=== PATIENT | male | born 1950 | race Caucasian/White ===

== ENCOUNTER 2022-06-21 11:30 | Inpatient (IN) ==
[2022-06-21] MEDS ORDERED: cefTRIAXone 1,000 MG in Water for inj. (sterile) 10 ML IVP ONE (12:45)
[2022-06-21] MEDS ORDERED: Azithromycin 500 MG in 0.9 % Sodium Chloride 250 ML IVPB ONE (12:46)
[2022-06-21 12:55] LABS: Basophils % 0.1 %; Hematocrit 39.3 % (37.5-50.1); Hemoglobin 13.7 g/dL (12.9-16.9); Immature Granulocytes % 0.4 % (0-4); Lymphocytes # 0.6 K/mcL (0.6-4.6); Lymphocytes % 9.2 %; Mean Corpuscular HGB Conc 34.9 g/dL (31.6-35.5); Mean Corpuscular Hemoglobin 30.5 pg (28.0-33.3); Mean Corpuscular Volume 87.5 fL (83.0-100.0); Mean Platelet Volume 9.3 fL (9.4-12.4); Monocytes # 0.5 K/mcL (0.0-1.3); Monocytes % 7.9 %; Neutrophils # 5.7 K/mcL (1.6-8.9); Platelet Count 239 K/mcL (140-400); Red Blood Count 4.49 M/mcL (4.19-5.50); Red Cell Distribution Width 11.9 % (11.5-14.5); Segmented Neutrophils % 82.4 %; White Blood Count 6.9 K/mcL (4.3-11.1)
[2022-06-21 13:19] LABS: BUN/Creatinine Ratio 18 (6-26); Blood Urea Nitrogen 17 mg/dL (8-23); Calcium 8.3 mg/dL (8.6-10.3); Carbon Dioxide 20 mEq/L (23-29); Chloride 99 mEq/L (98-107); Glucose 130 mg/dL (70-105); Osmolality,Calculated 279 (280-300); Potassium 3.5 mEq/L (3.5-5.1); Sodium 133 mEq/L (136-145); Troponin I < 0.03 ng/mL (< 0.04)
[2022-06-21 13:26] LABS: Influenza A PCR Negative (Negative); Influenza B PCR Negative (Negative); Resp. Syncytial Virus PCR Negative (Negative)
[2022-06-21 13:29] LABS: SARS-CoV-2 by PCR (In House) Positive (Negative)
[2022-06-21] MEDS ORDERED: Acetaminophen 325 MG TABLET PO PRN (14:22)
[2022-06-21] MEDS ORDERED: Naloxone 0.4 MG/ML INJ IVP PRN (14:22)
[2022-06-21] MEDS ORDERED: Remdesivir 200 MG in 0.9 % Sodium Chloride 100 ML IVPB ONE (14:27)
[2022-06-21 18:07] LABS: Albumin 3.6 g/dL (3.5-5.7); Bilirubin,Direct 0.1 mg/dL (0.0-0.2); Bilirubin,Indirect 0.5 mg/dL (0.0-1.0); Bilirubin,Total 0.6 mg/dL (0.3-1.0); Globulin 3.5 g/dL (2.4-3.5); Total Protein 7.1 g/dL (6.4-8.9)
[2022-06-21] MEDS: Azithromycin 500 MG in 0.9 % Sodium Chloride 250 ML IVPB SCH (18:21)
[2022-06-22 05:58] LABS: Basophils % 0.2 %; Hematocrit 37.6 % (37.5-50.1); Hemoglobin 13.1 g/dL (12.9-16.9); Immature Granulocytes % 0.6 % (0-4); Lymphocytes # 0.7 K/mcL (0.6-4.6); Lymphocytes % 11.1 %; Mean Corpuscular HGB Conc 34.8 g/dL (31.6-35.5); Mean Corpuscular Hemoglobin 30.6 pg (28.0-33.3); Mean Corpuscular Volume 87.9 fL (83.0-100.0); Mean Platelet Volume 8.9 fL (9.4-12.4); Monocytes # 0.9 K/mcL (0.0-1.3); Monocytes % 13.3 %; Neutrophils # 4.9 K/mcL (1.6-8.9); Platelet Count 207 K/mcL (140-400); Red Blood Count 4.28 M/mcL (4.19-5.50); Red Cell Distribution Width 12.1 % (11.5-14.5); Segmented Neutrophils % 74.8 %; White Blood Count 6.6 K/mcL (4.3-11.1)
[2022-06-22] MEDS ORDERED: *HR* Enoxaparin 40 MG/0.4 ML SYRINGE SQ SCH (06:00)
[2022-06-22 06:16] LABS: Albumin 3.6 g/dL (3.5-5.7); Albumin/Globulin Ratio 1.1 (1.1-2.2); Bilirubin,Direct 0.2 mg/dL (0.0-0.2); Bilirubin,Indirect 0.7 mg/dL (0.0-1.0); Bilirubin,Total 0.9 mg/dL (0.3-1.0); Calcium 8.2 mg/dL (8.6-10.3); Globulin 3.3 g/dL (2.4-3.5); Magnesium 1.8 mg/dL (1.6-2.6); Potassium 3.4 mEq/L (3.5-5.1); Total Protein 6.9 g/dL (6.4-8.9)
[2022-06-22] MEDS: cefTRIAXone 1,000 MG in 0.9 % Sodium Chloride 10 ML IVP SCH (11:09)
[2022-06-22] MEDS ORDERED: Iopamidol - 370 500 ML MLS IVP ONE (11:40)
[2022-06-22] MEDS ORDERED: Remdesivir 100 MG in 0.9 % Sodium Chloride 100 ML IVPB SCH (15:00)
[2022-06-22] MEDS ORDERED: *HR* Heparin 5,000 UNIT/ML VIAL IVP ONE (15:33)
[2022-06-22] MEDS ORDERED: *HR* Heparin 5,000 UNIT/ML VIAL IVP PRN (15:33)
[2022-06-22 16:21] LABS: Heparin anti-factor XA UFH 0.11 IU/mL (0.30-0.70)
[2022-06-22 16:22] LABS: INR 1.3; Prothrombin Time 14.5 Seconds (9.4-12.1)
[2022-06-22] MEDS: Azithromycin 500 MG in 0.9 % Sodium Chloride 250 ML IVPB SCH (16:22)
[2022-06-22] MEDS: Heparin 25,000UNIT/250ML 1/2NS 25,000 UNIT/250 ML IV.SOLN IVC SCH (16:49)
[2022-06-23 05:12] LABS: Hemoglobin 13.5 g/dL (12.9-16.9); Mean Corpuscular HGB Conc 35.5 g/dL (31.6-35.5); Mean Corpuscular Hemoglobin 30.8 pg (28.0-33.3); Mean Corpuscular Volume 86.8 fL (83.0-100.0); Mean Platelet Volume 9.3 fL (9.4-12.4); Platelet Count 241 K/mcL (140-400); Red Blood Count 4.38 M/mcL (4.19-5.50); Red Cell Distribution Width 11.8 % (11.5-14.5); White Blood Count 5.6 K/mcL (4.3-11.1)
[2022-06-23 05:31] LABS: BUN/Creatinine Ratio 24 (6-26); Blood Urea Nitrogen 19 mg/dL (8-23); Calcium 8.4 mg/dL (8.6-10.3); Carbon Dioxide 22 mEq/L (23-29); Chloride 99 mEq/L (98-107); Glucose 145 mg/dL (70-105); Osmolality,Calculated 277 (280-300); Potassium 3.7 mEq/L (3.5-5.1); Sodium 131 mEq/L (136-145)
[2022-06-23 05:32] LABS: Albumin 3.4 g/dL (3.5-5.7); Bilirubin,Direct 0.2 mg/dL (0.0-0.2); Bilirubin,Indirect 0.5 mg/dL (0.0-1.0); Bilirubin,Total 0.7 mg/dL (0.3-1.0); Globulin 3.5 g/dL (2.4-3.5); Total Protein 6.9 g/dL (6.4-8.9)
[2022-06-23] MEDS: cefTRIAXone 1,000 MG in 0.9 % Sodium Chloride 10 ML IVP SCH (10:38)
[2022-06-23] MEDS: amLODIPine 5 MG TABLET PO SCH (10:39)
[2022-06-23] MEDS: Dexamethasone Sodium Phos/PF 10 MG/ML VIAL IVP SCH (11:00)
[2022-06-23] MEDS: Heparin 25,000UNIT/250ML 1/2NS 25,000 UNIT/250 ML IV.SOLN IVC SCH (12:49)
[2022-06-23] MEDS: Azithromycin 500 MG in 0.9 % Sodium Chloride 250 ML IVPB SCH (15:47)
[2022-06-24 08:20] LABS: Hematocrit 35.8 % (37.5-50.1); Mean Corpuscular HGB Conc 36.3 g/dL (31.6-35.5); Mean Corpuscular Volume 85.2 fL (83.0-100.0); Mean Platelet Volume 9.1 fL (9.4-12.4); Platelet Count 327 K/mcL (140-400); Red Cell Distribution Width 11.6 % (11.5-14.5)
[2022-06-24 08:21] LABS: White Blood Count 11.2 K/mcL (4.3-11.1)
[2022-06-24 08:42] LABS: Alanine Aminotransferase 29 Units/L (7-52); Albumin 3.2 g/dL (3.5-5.7); Albumin/Globulin Ratio 0.9 (1.1-2.2); Alkaline Phosphatase 63 Units/L (34-104); Aspartate Amino Transferase 30 Units/L (13-39); BUN/Creatinine Ratio 32 (6-26); Bilirubin,Direct 0.1 mg/dL (0.0-0.2); Bilirubin,Indirect 0.7 mg/dL (0.0-1.0); Bilirubin,Total 0.8 mg/dL (0.3-1.0); Blood Urea Nitrogen 27 mg/dL (8-23); C-Reactive Protein 71 mg/L (Less than 10); Calcium 8.4 mg/dL (8.6-10.3); Carbon Dioxide 23 mEq/L (23-29); Chloride 97 mEq/L (98-107); Globulin 3.4 g/dL (2.4-3.5); Glucose 139 mg/dL (70-105); Lactate Dehydrogenase 416 Units/L (140-271); Osmolality,Calculated 277 (280-300); Potassium 3.6 mEq/L (3.5-5.1); Sodium 130 mEq/L (136-145); Total Protein 6.6 g/dL (6.4-8.9)
[2022-06-24 09:00] LABS: Ferritin 980 ng/mL (20-250)
[2022-06-24] MEDS: cefTRIAXone 1,000 MG in 0.9 % Sodium Chloride 10 ML IVP SCH (09:40)
[2022-06-24] MEDS: Furosemide 20 MG TABLET PO SCH (09:41)
[2022-06-24] MEDS: Dexamethasone Sodium Phos/PF 10 MG/ML VIAL IVP SCH (09:41)
[2022-06-24] MEDS: amLODIPine 5 MG TABLET PO SCH (09:41)
[2022-06-24] MEDS: Heparin 25,000UNIT/250ML 1/2NS 25,000 UNIT/250 ML IV.SOLN IVC SCH (09:42)
[2022-06-24] MEDS ORDERED: *HR* Metoprolol 5 MG/5 ML VIAL IVP PRN (11:05)
[2022-06-24] MEDS: *HR* Heparin 5,000 UNIT/ML VIAL IVP PRN (12:55)
[2022-06-24] MEDS ORDERED: Azithromycin 500 MG VIAL ONE (15:52)
[2022-06-24] MEDS: Azithromycin 500 MG in 0.9 % Sodium Chloride 250 ML IVPB SCH (16:01)
[2022-06-25 02:57] LABS: Hematocrit 34.8 % (37.5-50.1); Hemoglobin 12.4 g/dL (12.9-16.9); Mean Corpuscular HGB Conc 35.6 g/dL (31.6-35.5); Mean Corpuscular Hemoglobin 30.3 pg (28.0-33.3); Mean Corpuscular Volume 85.1 fL (83.0-100.0); Mean Platelet Volume 9.5 fL (9.4-12.4); Platelet Count 342 K/mcL (140-400); Red Blood Count 4.09 M/mcL (4.19-5.50); Red Cell Distribution Width 11.4 % (11.5-14.5); White Blood Count 12.4 K/mcL (4.3-11.1)
[2022-06-25 03:17] LABS: Albumin 3.1 g/dL (3.5-5.7); Albumin/Globulin Ratio 0.9 (1.1-2.2); Bilirubin,Direct 0.1 mg/dL (0.0-0.2); Bilirubin,Indirect 0.7 mg/dL (0.0-1.0); Bilirubin,Total 0.8 mg/dL (0.3-1.0); Globulin 3.3 g/dL (2.4-3.5); Total Protein 6.4 g/dL (6.4-8.9)
[2022-06-25 03:19] LABS: BUN/Creatinine Ratio 38 (6-26); Blood Urea Nitrogen 31 mg/dL (8-23); Carbon Dioxide 23 mEq/L (23-29); Chloride 97 mEq/L (98-107); Glucose 146 mg/dL (70-105); Osmolality,Calculated 277 (280-300); Potassium 3.8 mEq/L (3.5-5.1); Sodium 129 mEq/L (136-145)
[2022-06-25] MEDS: Heparin 25,000UNIT/250ML 1/2NS 25,000 UNIT/250 ML IV.SOLN IVC SCH (04:19)
[2022-06-25] MEDS: Dexamethasone Sodium Phos/PF 10 MG/ML VIAL IVP SCH (08:30)
[2022-06-25] MEDS: cefTRIAXone 1,000 MG in 0.9 % Sodium Chloride 10 ML IVP SCH (08:30)
[2022-06-25] MEDS: Furosemide 20 MG TABLET PO SCH (08:31)
[2022-06-25] MEDS: amLODIPine 5 MG TABLET PO SCH (08:31)
[2022-06-25] MEDS: Azithromycin 500 MG in 0.9 % Sodium Chloride 250 ML IVPB SCH (14:53)
[2022-06-26] MEDS: Heparin 25,000UNIT/250ML 1/2NS 25,000 UNIT/250 ML IV.SOLN IVC SCH ×2 (02:44→23:43)
[2022-06-26 04:36] LABS: Albumin 3.1 g/dL (3.5-5.7); Albumin/Globulin Ratio 0.9 (1.1-2.2); Bilirubin,Direct 0.1 mg/dL (0.0-0.2); Bilirubin,Indirect 0.7 mg/dL (0.0-1.0); Bilirubin,Total 0.8 mg/dL (0.3-1.0); Globulin 3.3 g/dL (2.4-3.5); Total Protein 6.4 g/dL (6.4-8.9)
[2022-06-26] MEDS: Dexamethasone Sodium Phos/PF 10 MG/ML VIAL IVP SCH (07:14)
[2022-06-26] MEDS: Furosemide 20 MG TABLET PO SCH (07:15)
[2022-06-26] MEDS: cefTRIAXone 1,000 MG in 0.9 % Sodium Chloride 10 ML IVP SCH (07:15)
[2022-06-26] MEDS: amLODIPine 5 MG TABLET PO SCH (07:15)
[2022-06-26] MEDS ORDERED: Milk and Molasses Enema 200 ML RC ONE (12:28)
[2022-06-26] MEDS: Azithromycin 500 MG in 0.9 % Sodium Chloride 250 ML IVPB SCH (15:34)
[2022-06-27] MEDS: amLODIPine 5 MG TABLET PO SCH (10:21)
[2022-06-27] MEDS: Furosemide 20 MG TABLET PO SCH (10:21)
[2022-06-27] MEDS: Dexamethasone Sodium Phos/PF 10 MG/ML VIAL IVP SCH (10:22)
[2022-06-27] MEDS: cefTRIAXone 1,000 MG in 0.9 % Sodium Chloride 10 ML IVP SCH (10:22)
[2022-06-27 12:04] LABS: Heparin anti-factor XA UFH 0.29 IU/mL (0.30-0.70)
[2022-06-27] MEDS: *HR* Heparin 5,000 UNIT/ML VIAL IVP PRN (12:45)
[2022-06-27 14:23] LABS: Hematocrit 37.5 % (37.5-50.1); Hemoglobin 13.7 g/dL (12.9-16.9); Mean Corpuscular HGB Conc 36.5 g/dL (31.6-35.5); Mean Corpuscular Hemoglobin 30.5 pg (28.0-33.3); Mean Corpuscular Volume 83.5 fL (83.0-100.0); Mean Platelet Volume 9.2 fL (9.4-12.4); Platelet Count 385 K/mcL (140-400); Red Blood Count 4.49 M/mcL (4.19-5.50); Red Cell Distribution Width 11.6 % (11.5-14.5)
[2022-06-27 14:44] LABS: BUN/Creatinine Ratio 35 (6-26); Blood Urea Nitrogen 28 mg/dL (8-23); C-Reactive Protein 14 mg/L (Less than 10); Calcium 7.7 mg/dL (8.6-10.3); Carbon Dioxide 24 mEq/L (23-29); Chloride 94 mEq/L (98-107); Glucose 165 mg/dL (70-105); Osmolality,Calculated 275 (280-300); Sodium 128 mEq/L (136-145)
[2022-06-27] MEDS: Heparin 25,000UNIT/250ML 1/2NS 25,000 UNIT/250 ML IV.SOLN IVC SCH ×2 (19:51→21:38)
[2022-06-27 23:05] LABS: BUN/Creatinine Ratio 42 (6-26); Blood Urea Nitrogen 31 mg/dL (8-23); Calcium 7.8 mg/dL (8.6-10.3); Carbon Dioxide 24 mEq/L (23-29); Chloride 96 mEq/L (98-107); Glucose 172 mg/dL (70-105); Magnesium 2.1 mg/dL (1.6-2.6); Osmolality,Calculated 269 (280-300); Potassium 4.1 mEq/L (3.5-5.1); Sodium 124 mEq/L (136-145)
[2022-06-28 04:51] LABS: Hematocrit 37.2 % (37.5-50.1); Hemoglobin 13.5 g/dL (12.9-16.9); Immature Granulocytes % 3.1 % (0-4); Lymphocytes % 4.4 %; Mean Corpuscular HGB Conc 36.3 g/dL (31.6-35.5); Mean Corpuscular Hemoglobin 30.7 pg (28.0-33.3); Mean Corpuscular Volume 84.5 fL (83.0-100.0); Mean Platelet Volume 9.2 fL (9.4-12.4); Monocytes % 9.6 %; Platelet Count 385 K/mcL (140-400); Red Cell Distribution Width 11.3 % (11.5-14.5); Segmented Neutrophils % 82.4 %; White Blood Count 13.3 K/mcL (4.3-11.1)
[2022-06-28 04:52] LABS: Basophils # 0.1 K/mcL (0.0-0.2); Basophils % 0.5 %; Lymphocytes # 0.6 K/mcL (0.6-4.6); Monocytes # 1.3 K/mcL (0.0-1.3); Neutrophils # 10.9 K/mcL (1.6-8.9)
[2022-06-28 05:07] LABS: BUN/Creatinine Ratio 44 (6-26); Blood Urea Nitrogen 30 mg/dL (8-23); Calcium 7.7 mg/dL (8.6-10.3); Carbon Dioxide 23 mEq/L (23-29); Chloride 95 mEq/L (98-107); Glucose 134 mg/dL (70-105); Osmolality,Calculated 272 (280-300); Potassium 4.1 mEq/L (3.5-5.1); Sodium 127 mEq/L (136-145)
[2022-06-28] MEDS: amLODIPine 5 MG TABLET PO SCH (07:52)
[2022-06-28] MEDS: Furosemide 20 MG TABLET PO SCH (07:52)
[2022-06-28] MEDS: cefTRIAXone 1,000 MG in 0.9 % Sodium Chloride 10 ML IVP SCH (07:53)
[2022-06-28] MEDS: Dexamethasone Sodium Phos/PF 10 MG/ML VIAL IVP SCH (07:54)
[2022-06-28] MEDS ORDERED: Furosemide 40 MG/4 ML VIAL IVP ONE (08:36)
[2022-06-28] MEDS: GuaiFENesin/Codeine Oral Soln 5 ML UDC PO PRN (08:58)
[2022-06-28] MEDS: *HR* LORazepam 2 MG/ML VIAL IVP PRN (09:01)
[2022-06-28 11:46] LABS: ABG Base Excess 3 mEq/L (-2 to 3); ABG HCO3 25 mEq/L (21-27); ABG Oxygen Saturation 96 % (95-98); ABG PCO2 29 mmHg (35-45); ABG PH 7.54 pH Units (7.32-7.45); ABG PO2 73 mmHg (85-104); ABG TCO2 26 mEq/L (20-26)
[2022-06-28] MEDS: Heparin 25,000UNIT/250ML 1/2NS 25,000 UNIT/250 ML IV.SOLN IVC SCH (20:27)
[2022-06-29 02:14] LABS: Basophils # 0.1 K/mcL (0.0-0.2); Basophils % 0.4 %; Hematocrit 36.3 % (37.5-50.1); Hemoglobin 13.3 g/dL (12.9-16.9); Immature Granulocytes % 3.3 % (0-4); Lymphocytes # 0.7 K/mcL (0.6-4.6); Lymphocytes % 5.2 %; Mean Corpuscular HGB Conc 36.6 g/dL (31.6-35.5); Mean Corpuscular Hemoglobin 30.6 pg (28.0-33.3); Mean Corpuscular Volume 83.6 fL (83.0-100.0); Mean Platelet Volume 9.2 fL (9.4-12.4); Monocytes # 1.3 K/mcL (0.0-1.3); Monocytes % 9.5 %; Neutrophils # 11.3 K/mcL (1.6-8.9); Platelet Count 357 K/mcL (140-400); Red Blood Count 4.34 M/mcL (4.19-5.50); Red Cell Distribution Width 11.3 % (11.5-14.5); Segmented Neutrophils % 81.6 %; White Blood Count 13.8 K/mcL (4.3-11.1)
[2022-06-29 02:38] LABS: BUN/Creatinine Ratio 41 (6-26); Blood Urea Nitrogen 29 mg/dL (8-23); Calcium 7.6 mg/dL (8.6-10.3); Carbon Dioxide 26 mEq/L (23-29); Chloride 94 mEq/L (98-107); Glucose 139 mg/dL (70-105); Osmolality,Calculated 272 (280-300); Potassium 4.1 mEq/L (3.5-5.1); Sodium 127 mEq/L (136-145)
[2022-06-29 07:57] LABS: ABG Base Excess 2 mEq/L (-2 to 3); ABG HCO3 25 mEq/L (21-27); ABG Oxygen Saturation 94 % (95-98); ABG PCO2 32 mmHg (35-45); ABG PO2 64 mmHg (85-104); ABG TCO2 26 mEq/L (20-26)
[2022-06-29] MEDS: Furosemide 20 MG TABLET PO SCH (10:48)
[2022-06-29] MEDS: GuaiFENesin/Codeine Oral Soln 5 ML UDC PO PRN (10:48)
[2022-06-29] MEDS: amLODIPine 5 MG TABLET PO SCH (10:48)
[2022-06-29] MEDS: Dexamethasone Sodium Phos/PF 10 MG/ML VIAL IVP SCH (10:49)
[2022-06-29] MEDS: cefTRIAXone 1,000 MG in 0.9 % Sodium Chloride 10 ML IVP SCH (10:52)
[2022-06-29] MEDS: *HR* LORazepam 2 MG/ML VIAL IVP PRN (11:22)
[2022-06-29] MEDS: Dexmedetomidine HCl 400 MCG/100 ML MLS IVC SCH (13:14)
[2022-06-29] MEDS: Heparin 25,000UNIT/250ML 1/2NS 25,000 UNIT/250 ML IV.SOLN IVC SCH (19:09)
[2022-06-30 03:59] LABS: Hemoglobin 13.3 g/dL (12.9-16.9); Mean Corpuscular Hemoglobin 30.3 pg (28.0-33.3); Mean Corpuscular Volume 86.6 fL (83.0-100.0); Mean Platelet Volume 9.6 fL (9.4-12.4); Platelet Count 338 K/mcL (140-400); Red Blood Count 4.39 M/mcL (4.19-5.50); Red Cell Distribution Width 11.4 % (11.5-14.5)
[2022-06-30 04:05] LABS: Heparin anti-factor XA UFH 0.69 IU/mL (0.30-0.70)
[2022-06-30 04:14] LABS: BUN/Creatinine Ratio 45 (6-26); Blood Urea Nitrogen 34 mg/dL (8-23); C-Reactive Protein 44 mg/L (Less than 10); Calcium 7.7 mg/dL (8.6-10.3); Carbon Dioxide 26 mEq/L (23-29); Chloride 97 mEq/L (98-107); Glucose 118 mg/dL (70-105); Lactate Dehydrogenase 439 Units/L (140-271); Magnesium 2.2 mg/dL (1.6-2.6); Osmolality,Calculated 279 (280-300); Phosphorous 3.2 mg/dL (2.7-4.5); Potassium 4.4 mEq/L (3.5-5.1); Sodium 130 mEq/L (136-145)
[2022-06-30 04:40] LABS: Ferritin > 1500 ng/mL (20-250)
[2022-06-30] MEDS: amLODIPine 5 MG TABLET PO SCH (07:32)
[2022-06-30] MEDS: Furosemide 20 MG TABLET PO SCH (07:32)
[2022-06-30] MEDS: cefTRIAXone 1,000 MG in 0.9 % Sodium Chloride 10 ML IVP SCH (07:33)
[2022-06-30] MEDS: Dexmedetomidine HCl 400 MCG/100 ML MLS IVC SCH (07:34)
[2022-06-30] MEDS: Dexamethasone Sodium Phos/PF 10 MG/ML VIAL IVP SCH (07:34)
[2022-06-30] MEDS ORDERED: Furosemide 20 MG/2 ML VIAL IVP ONE (09:28)
[2022-06-30 11:14] LABS: ABG Base Excess 4 mEq/L (-2 to 3); ABG HCO3 27 mEq/L (21-27); ABG Oxygen Saturation 96 % (95-98); ABG PCO2 35 mmHg (35-45); ABG PO2 74 mmHg (85-104); ABG TCO2 28 mEq/L (20-26); Blood Gas VT 500 cc
[2022-06-30] MEDS ORDERED: *HR* Metoprolol 5 MG/5 ML VIAL IVP PRN (11:16)
[2022-06-30 12:42] LABS: VBG Ionized Calcium 1.02 mmol/L (1.15-1.35)
[2022-06-30] MEDS ORDERED: Potassium Phosphate 44 MEQ in 0.9 % Sodium Chloride 250 ML IVPB PRN (18:25)
[2022-06-30] MEDS: Azithromycin 500 MG in 0.9 % Sodium Chloride 250 ML IVPB SCH (20:03)
[2022-06-30] MEDS: Heparin 25,000UNIT/250ML 1/2NS 25,000 UNIT/250 ML IV.SOLN IVC SCH (20:16)
[2022-07-01] MEDS: Calcium Gluconate 1gm/50mL 1 GM/50 ML BAG IVPB PRN ×2 (00:42→13:23)
[2022-07-01] MEDS ORDERED: Artificial Tears SOLN 15 ML BOTTLE BOTH EYES PRN (01:43)
[2022-07-01 01:53] LABS: Basophils # 0.1 K/mcL (0.0-0.2); Basophils % 0.4 %; Hematocrit 41.4 % (37.5-50.1); Hemoglobin 14.4 g/dL (12.9-16.9); Immature Granulocytes % 1.8 % (0-4); Lymphocytes # 1.7 K/mcL (0.6-4.6); Lymphocytes % 9.4 %; Mean Corpuscular HGB Conc 34.8 g/dL (31.6-35.5); Mean Platelet Volume 9.6 fL (9.4-12.4); Monocytes # 1.3 K/mcL (0.0-1.3); Monocytes % 7.2 %; Neutrophils # 14.8 K/mcL (1.6-8.9); Platelet Count 387 K/mcL (140-400); Red Blood Count 4.65 M/mcL (4.19-5.50); Red Cell Distribution Width 11.8 % (11.5-14.5); Segmented Neutrophils % 81.2 %; White Blood Count 18.3 K/mcL (4.3-11.1)
[2022-07-01] MEDS ORDERED: *HR* Propofol 200 MG/20 ML VIAL IVP ONE (02:00)
[2022-07-01] MEDS ORDERED: *HR* Midazolam HCl 5 MG/5 ML VIAL IVP ONE (02:00)
[2022-07-01 02:06] LABS: Alanine Aminotransferase 101 Units/L (7-52); Albumin 2.9 g/dL (3.5-5.7); Albumin/Globulin Ratio 0.9 (1.1-2.2); Alkaline Phosphatase 60 Units/L (34-104); Aspartate Amino Transferase 32 Units/L (13-39); BUN/Creatinine Ratio 41 (6-26); Bilirubin,Total 0.9 mg/dL (0.3-1.0); Blood Urea Nitrogen 40 mg/dL (8-23); Calcium 8.3 mg/dL (8.6-10.3); Carbon Dioxide 22 mEq/L (23-29); Chloride 97 mEq/L (98-107); Globulin 3.4 g/dL (2.4-3.5); Glucose 222 mg/dL (70-105); Lactate Dehydrogenase 459 Units/L (140-271); Magnesium 3.5 mg/dL (1.6-2.6); Osmolality,Calculated 293 (280-300); Phosphorous 4.7 mg/dL (2.7-4.5); Potassium 4.3 mEq/L (3.5-5.1); Sodium 133 mEq/L (136-145); Total Protein 6.3 g/dL (6.4-8.9)
[2022-07-01 02:25] LABS: Ferritin > 1500 ng/mL (20-250)
[2022-07-01] MEDS: Norepinephrine 4 MG/254 ML IV.SOLN IVC SCH ×6 (02:29→22:33)
[2022-07-01] MEDS: FentaNYL (PF) 1,000 MCG/100 ML IV.SOLN IVC SCH ×3 (02:29→19:16)
[2022-07-01] MEDS: Cisatracurium 200 MG in 0.9 % Sodium Chloride 80 ML IVC SCH (03:00)
[2022-07-01] MEDS: Artificial Tears SOLN 15 ML BOTTLE BOTH EYES SCH ×5 (03:31→20:08)
[2022-07-01 04:24] LABS: ABG Base Excess -1 mEq/L (-2 to 3); ABG HCO3 24 mEq/L (21-27); ABG Oxygen Saturation 94 % (95-98); ABG PCO2 38 mmHg (35-45); ABG PH 7.41 pH Units (7.32-7.45); ABG PO2 69 mmHg (85-104); ABG TCO2 25 mEq/L (20-26); Blood Gas VT 500 cc
[2022-07-01] MEDS: Dexmedetomidine HCl 400 MCG/100 ML MLS IVC SCH ×2 (04:46→10:05)
[2022-07-01] MEDS ORDERED: Amiodarone Premix 360 MG/200 ML BAG IVC ONE ×2 (06:38→06:45)
[2022-07-01] MEDS: cefTRIAXone 1,000 MG in 0.9 % Sodium Chloride 10 ML IVP SCH (07:32)
[2022-07-01] MEDS: Pantoprazole 40 MG VIAL IVP SCH (07:32)
[2022-07-01] MEDS: Furosemide 20 MG/2 ML VIAL IVP SCH (07:33)
[2022-07-01] MEDS: Dexamethasone Sodium Phos/PF 10 MG/ML VIAL IVP SCH (07:33)
[2022-07-01] MEDS: amLODIPine 5 MG TABLET PO SCH (07:33)
[2022-07-01] MEDS: Chlorhexidine Rinse 15 ML MOUTHWASH MM SCH ×2 (07:34→20:08)
[2022-07-01] MEDS ORDERED: Iopamidol - 370 500 ML MLS IVP ONE (11:09)
[2022-07-01] MEDS: Amiodarone Premix 360 MG/200 ML BAG IVC SCH ×2 (12:54→22:33)
[2022-07-01] MEDS ORDERED: *HR* FentaNYL (PF) 100 MCG/2 ML VIAL ONE (14:22)
[2022-07-01] MEDS ORDERED: *HR* Midazolam HCl 2 MG/2 ML VIAL ONE (14:23)
[2022-07-01] MEDS ORDERED: Iopamidol - 370 200 ML INFUS..BTL ONE (14:23)
[2022-07-01] MEDS ORDERED: Heparin 1,000 UNITS/500 mL 500 ML ONE ×2 (14:23→14:29)
[2022-07-01] MEDS ORDERED: 0.9 % Sodium Chloride 2,000 ML ONE (14:23)
[2022-07-01] MEDS ORDERED: *HR* Heparin 10,000 UNIT/10 ML VIAL ONE (14:23)
[2022-07-01] MEDS ORDERED: Nitroglycerin 1,000 MCG/5 ML VIAL IV ONE (14:24)
[2022-07-01] MEDS: Insulin LISPRO 300 UNITS/3 ML VIAL SUBQ SCH (17:05)
[2022-07-01] MEDS ORDERED: Insulin LISPRO 300 UNITS/3 ML VIAL SUBQ SCH (18:00)
[2022-07-01] MEDS: Azithromycin 500 MG in 0.9 % Sodium Chloride 250 ML IVPB SCH (20:07)
[2022-07-01] MEDS: Heparin 25,000UNIT/250ML 1/2NS 25,000 UNIT/250 ML IV.SOLN IVC SCH (20:29)
[2022-07-01 22:13] LABS: Calcium 7.8 mg/dL (8.6-10.3); Magnesium 2.8 mg/dL (1.6-2.6); Phosphorous 5.2 mg/dL (2.7-4.5)
[2022-07-02] MEDS: Artificial Tears SOLN 15 ML BOTTLE BOTH EYES SCH ×7 (00:26→23:05)
[2022-07-02] MEDS: Insulin LISPRO 300 UNITS/3 ML VIAL SUBQ SCH ×6 (00:29→23:23)
[2022-07-02] MEDS: Cisatracurium 200 MG in 0.9 % Sodium Chloride 80 ML IVC SCH ×2 (00:31→12:31)
[2022-07-02] MEDS ORDERED: *HR* Amiodarone 450 MG/9 ML VIAL IVC ONE (01:20)
[2022-07-02] MEDS ORDERED: *HR* Magnesium Sulfate 2 GM/50 ML PIGGYBACK IVPB ONE (01:20)
[2022-07-02] MEDS ORDERED: *HR* Amiodarone Premix 360 MG/200 ML BAG IVC ONE (01:20)
[2022-07-02] MEDS: Norepinephrine 4 MG/254 ML IV.SOLN IVC SCH ×2 (02:16→06:50)
[2022-07-02 04:16] LABS: ABG Base Excess -1 mEq/L (-2 to 3); ABG HCO3 25 mEq/L (21-27); ABG Oxygen Saturation 93 % (95-98); ABG PCO2 45 mmHg (35-45); ABG PH 7.36 pH Units (7.32-7.45); ABG PO2 72 mmHg (85-104); ABG TCO2 27 mEq/L (20-26); Blood Gas VT 500 cc
[2022-07-02 04:29] LABS: Basophils # 0.1 K/mcL (0.0-0.2); Basophils % 0.2 %; Hematocrit 37.3 % (37.5-50.1); Immature Granulocytes % 2.1 % (0-4); Lymphocytes % 4.2 %; Mean Corpuscular HGB Conc 34.3 g/dL (31.6-35.5); Mean Corpuscular Hemoglobin 30.5 pg (28.0-33.3); Mean Corpuscular Volume 88.8 fL (83.0-100.0); Mean Platelet Volume 9.7 fL (9.4-12.4); Monocytes # 2.1 K/mcL (0.0-1.3); Monocytes % 8.8 %; Neutrophils # 20.7 K/mcL (1.6-8.9); Platelet Count 378 K/mcL (140-400); Red Cell Distribution Width 11.8 % (11.5-14.5); Segmented Neutrophils % 84.7 %; White Blood Count 24.4 K/mcL (4.3-11.1)
[2022-07-02 04:30] LABS: Hemoglobin 12.8 g/dL (12.9-16.9)
[2022-07-02 04:41] LABS: Albumin 2.9 g/dL (3.5-5.7); Albumin/Globulin Ratio 0.8 (1.1-2.2); Bilirubin,Direct 0.2 mg/dL (0.0-0.2); Bilirubin,Indirect 0.4 mg/dL (0.0-1.0); Bilirubin,Total 0.6 mg/dL (0.3-1.0); Calcium 7.7 mg/dL (8.6-10.3); Globulin 3.5 g/dL (2.4-3.5); Magnesium 2.8 mg/dL (1.6-2.6); Phosphorous 4.8 mg/dL (2.7-4.5); Potassium 4.7 mEq/L (3.5-5.1); Total Protein 6.4 g/dL (6.4-8.9)
[2022-07-02] MEDS: FentaNYL (PF) 1,000 MCG/100 ML IV.SOLN IVC SCH ×3 (04:43→21:17)
[2022-07-02] MEDS: Dexmedetomidine HCl 400 MCG/100 ML MLS IVC SCH (04:45)
[2022-07-02] MEDS: Furosemide 20 MG/2 ML VIAL IVP SCH (08:32)
[2022-07-02] MEDS: cefTRIAXone 1,000 MG in 0.9 % Sodium Chloride 10 ML IVP SCH (08:33)
[2022-07-02] MEDS: Dexamethasone Sodium Phos/PF 10 MG/ML VIAL IVP SCH (08:33)
[2022-07-02] MEDS: amLODIPine 5 MG TABLET PO SCH (08:34)
[2022-07-02] MEDS: Chlorhexidine Rinse 15 ML MOUTHWASH MM SCH ×2 (08:34→19:56)
[2022-07-02] MEDS: Pantoprazole 40 MG VIAL IVP SCH (08:34)
[2022-07-02] MEDS: Amiodarone Premix 360 MG/200 ML BAG IVC SCH ×2 (10:15→22:12)
[2022-07-02] MEDS ORDERED: Vancomycin 1,500 MG/265 ML IV.SOLN IVPB ONE (12:01)
[2022-07-02] MEDS ORDERED: Piperacillin/Tazobactam 3.375 GM in 0.9 % Sodium Chloride Mini Bag 100 ML IVPB SCH (12:15)
[2022-07-02] MEDS ORDERED: 0.9 % Sodium Chloride 1,000 ML ONE (14:16)
[2022-07-02 17:34] LABS: ABG Base Excess 0 mEq/L (-2 to 3); ABG HCO3 27 mEq/L (21-27); ABG Oxygen Saturation 96 % (95-98); ABG PCO2 48 mmHg (35-45); ABG PH 7.35 pH Units (7.32-7.45); ABG PO2 86 mmHg (85-104); ABG TCO2 28 mEq/L (20-26); Blood Gas Modality ASSIST CONTROL; Blood Gas VT 400 cc
[2022-07-02 18:44] LABS: Bilirubin,Urine Negative (Negative); Blood,Urine Large (Negative); Clarity,Urine Clear (Clear); Color,Urine Yellow (Yellow); Glucose,Urine (UA) Normal (Normal); Granular Casts,Urine Few per lpf (None Seen); Ketones,Urine Negative (Negative); Leukocyte Esterase,Urine Negative (Negative); Mucus,Urine Few per lpf (None-Few); Nitrite,Urine Negative (Negative); Protein,Urine 30 mg/dL (Neg-Trace); RBC,Urine TNTC per hpf (0-3); Specific Gravity,Urine > 1.030 (1.010-1.025); Squamous Epithelial Cell,Urine Few per hpf (None-Few); Urobilinogen,Urine Normal (Normal); WBC,Urine 15-30 per hpf (0-3)
[2022-07-02] MEDS: Heparin 25,000UNIT/250ML 1/2NS 25,000 UNIT/250 ML IV.SOLN IVC SCH (19:29)
[2022-07-02] MEDS: Piperacillin/Tazobactam 3.375 GM in 0.9 % Sodium Chloride Mini Bag 100 ML IVPB SCH (21:26)
[2022-07-03] MEDS: Cisatracurium 200 MG in 0.9 % Sodium Chloride 80 ML IVC SCH ×2 (00:08→14:16)
[2022-07-03 03:33] LABS: Basophils % 0.1 %; Eosinophils % 0.1 %; Hematocrit 34.4 % (37.5-50.1); Hemoglobin 11.9 g/dL (12.9-16.9); Immature Granulocytes % 1.4 % (0-4); Lymphocytes # 0.5 K/mcL (0.6-4.6); Lymphocytes % 3.3 %; Mean Corpuscular HGB Conc 34.6 g/dL (31.6-35.5); Mean Corpuscular Hemoglobin 30.7 pg (28.0-33.3); Mean Corpuscular Volume 88.9 fL (83.0-100.0); Monocytes # 0.7 K/mcL (0.0-1.3); Monocytes % 4.5 %; Neutrophils # 14.2 K/mcL (1.6-8.9); Platelet Count 203 K/mcL (140-400); Red Blood Count 3.87 M/mcL (4.19-5.50); Red Cell Distribution Width 11.9 % (11.5-14.5); Segmented Neutrophils % 90.6 %; White Blood Count 15.7 K/mcL (4.3-11.1)
[2022-07-03] MEDS: Artificial Tears SOLN 15 ML BOTTLE BOTH EYES SCH ×6 (03:34→23:37)
[2022-07-03] MEDS: Heparin 25,000UNIT/250ML 1/2NS 25,000 UNIT/250 ML IV.SOLN IVC SCH (03:46)
[2022-07-03] MEDS: FentaNYL (PF) 1,000 MCG/100 ML IV.SOLN IVC SCH ×3 (03:48→17:18)
[2022-07-03 03:53] LABS: Albumin 2.5 g/dL (3.5-5.7); Albumin/Globulin Ratio 0.8 (1.1-2.2); Bilirubin,Direct 0.1 mg/dL (0.0-0.2); Bilirubin,Indirect 0.3 mg/dL (0.0-1.0); Bilirubin,Total 0.4 mg/dL (0.3-1.0); Calcium 7.5 mg/dL (8.6-10.3); Globulin 3.1 g/dL (2.4-3.5); Magnesium 2.7 mg/dL (1.6-2.6); Potassium 4.8 mEq/L (3.5-5.1); Total Protein 5.6 g/dL (6.4-8.9)
[2022-07-03 04:15] LABS: ABG Base Excess 3 mEq/L (-2 to 3); ABG HCO3 31 mEq/L (21-27); ABG Oxygen Saturation 86 % (95-98); ABG PCO2 64 mmHg (35-45); ABG PH 7.29 pH Units (7.32-7.45); ABG PO2 60 mmHg (85-104); ABG TCO2 33 mEq/L (20-26); Blood Gas Modality ASSIST CONTROL; Blood Gas VT 400 cc
[2022-07-03] MEDS: Piperacillin/Tazobactam 3.375 GM in 0.9 % Sodium Chloride Mini Bag 100 ML IVPB SCH ×3 (05:00→23:37)
[2022-07-03] MEDS: Insulin LISPRO 300 UNITS/3 ML VIAL SUBQ SCH ×4 (05:00→20:20)
[2022-07-03] MEDS: Dexmedetomidine HCl 400 MCG/100 ML MLS IVC SCH (05:55)
[2022-07-03] MEDS: Chlorhexidine Rinse 15 ML MOUTHWASH MM SCH ×2 (09:12→19:45)
[2022-07-03] MEDS: Dexamethasone Sodium Phos/PF 10 MG/ML VIAL IVP SCH (09:19)
[2022-07-03] MEDS: Pantoprazole 40 MG VIAL IVP SCH (09:19)
[2022-07-03] MEDS: Furosemide 20 MG/2 ML VIAL IVP SCH (09:20)
[2022-07-03] MEDS: amLODIPine 5 MG TABLET PO SCH (09:28)
[2022-07-03] MEDS: Amiodarone Premix 360 MG/200 ML BAG IVC SCH ×2 (10:20→22:18)
[2022-07-03] MEDS ORDERED: Vancomycin 1,500 MG/265 ML IV.SOLN IVPB SCH (12:00)
[2022-07-03] MEDS ORDERED: D10% in Water 500 ML IVC PRN (13:19)
[2022-07-03] MEDS ORDERED: *HR* Dextrose 50 % in Water (Syg) 50 ML SYRINGE IVP PRN (16:30)
[2022-07-03] MEDS ORDERED: D5% in Water 1,000 ML IVC PRN (16:30)
[2022-07-03] MEDS ORDERED: Dextrose Gel 15 GM/37.5 ML TUBE PO PRN ×2 (16:30)
[2022-07-03] MEDS ORDERED: Clinimix E 5%-15% SOLUTION 2,000 ML with MVI, adult with vitamin K 10 ML IVC SCH (17:00)
[2022-07-03] MEDS ORDERED: Insulin LISPRO 300 UNITS/3 ML VIAL SUBQ SCH (20:00)
[2022-07-03 22:24] LABS: A.calcoaceticus-baumannii cplx Not Detected (Not Detect); Bacteroides fragilis by PCR Not Detected (Not Detect); Enterobacter cloacae Cmplx PCR Not Detected (Not Detect); Enterobacterales by PCR Not Detected (Not Detect); Enterococcus faecalis by PCR Not Detected (Not Detect); Enterococcus faecium by PCR Not Detected (Not Detect); Escherichia coli by PCR Not Detected (Not Detect); Staph epidermidis by PCR Not Detected (Not Detect); Staph lugdunensis by PCR Not Detected (Not Detect); Staphylococcus aureus by PCR Not Detected (Not Detect); Staphylococcus by PCR Not Detected (Not Detect); Streptococcus agalactiae(B)PCR Not Detected (Not Detect); Streptococcus by PCR Not Detected (Not Detect); Streptococcus pneumoniae PCR Not Detected (Not Detect); Streptococcus pyogenes (A) PCR Not Detected (Not Detect)
[2022-07-03 22:25] LABS: Candida albicans by PCR Not Detected (Not Detect); Candida auris by PCR Not Detected (Not Detect); Candida glabrata by PCR Not Detected (Not Detect); Candida krusei by PCR Not Detected (Not Detect); Candida parapsilosis by PCR Not Detected (Not Detect); Candida tropicalis by PCR Not Detected (Not Detect); Crypto. neoformans/gattii PCR Not Detected (Not Detect); Klebs. pneumoniae group by PCR Not Detected (Not Detect); Klebsiella aerogenes by PCR Not Detected (Not Detect); Klebsiella oxytoca by PCR Not Detected (Not Detect); Proteus by PCR Not Detected (Not Detect); Pseudomonas aeruginosa by PCR Not Detected (Not Detect); Salmonella species by PCR Not Detected (Not Detect); Serratia marcescens by PCR Not Detected (Not Detect); Stenotrophomonas maltophilia DETECTED (Not Detect)
[2022-07-04] MEDS: Insulin LISPRO 300 UNITS/3 ML VIAL SUBQ SCH ×7 (00:02→23:40)
[2022-07-04] MEDS: FentaNYL (PF) 1,000 MCG/100 ML IV.SOLN IVC SCH ×4 (01:11→20:48)
[2022-07-04] MEDS: Heparin 25,000UNIT/250ML 1/2NS 25,000 UNIT/250 ML IV.SOLN IVC SCH (02:24)
[2022-07-04] MEDS ORDERED: SODIUM ZIRCONIUM CYCLOSILICATE 5 GM POWD.PACK PO ONE ×2 (03:00→21:00)
[2022-07-04] MEDS: Artificial Tears SOLN 15 ML BOTTLE BOTH EYES SCH ×6 (03:06→23:34)
[2022-07-04 04:27] LABS: ABG Base Excess 1 mEq/L (-2 to 3); ABG HCO3 33 mEq/L (21-27); ABG Oxygen Saturation 87 % (95-98); ABG PCO2 89 mmHg (35-45); ABG PH 7.17 pH Units (7.32-7.45); ABG PO2 69 mmHg (85-104); ABG TCO2 36 mEq/L (20-26); Blood Gas Modality ASSIST CONTROL; Blood Gas VT 400 cc
[2022-07-04 04:35] LABS: Basophils % 0.3 %; Mean Platelet Volume 10.2 fL (9.4-12.4)
[2022-07-04 04:37] LABS: Basophils # 0.1 K/mcL (0.0-0.2); Hematocrit 40.3 % (37.5-50.1); Hemoglobin 13.1 g/dL (12.9-16.9); Lymphocytes # 0.7 K/mcL (0.6-4.6); Lymphocytes % 2.4 %; Mean Corpuscular HGB Conc 32.5 g/dL (31.6-35.5); Mean Corpuscular Hemoglobin 30.3 pg (28.0-33.3); Mean Corpuscular Volume 93.1 fL (83.0-100.0); Monocytes # 1.3 K/mcL (0.0-1.3); Monocytes % 4.5 %; Neutrophils # 26.7 K/mcL (1.6-8.9); Platelet Count 283 K/mcL (140-400); Red Blood Count 4.33 M/mcL (4.19-5.50); Red Cell Distribution Width 12.1 % (11.5-14.5); Segmented Neutrophils % 90.8 %; White Blood Count 29.4 K/mcL (4.3-11.1)
[2022-07-04 04:53] LABS: Albumin 2.6 g/dL (3.5-5.7); Albumin/Globulin Ratio 0.8 (1.1-2.2); Bilirubin,Direct 0.1 mg/dL (0.0-0.2); Bilirubin,Indirect 0.6 mg/dL (0.0-1.0); Bilirubin,Total 0.7 mg/dL (0.3-1.0); Calcium 7.4 mg/dL (8.6-10.3); Globulin 3.3 g/dL (2.4-3.5); Magnesium 2.9 mg/dL (1.6-2.6); Phosphorous 4.8 mg/dL (2.7-4.5); Potassium 5.6 mEq/L (3.5-5.1); Total Protein 5.9 g/dL (6.4-8.9)
[2022-07-04 04:54] LABS: Albumin 2.5 g/dL (3.5-5.7); Albumin/Globulin Ratio 0.8 (1.1-2.2); Bilirubin,Total 0.4 mg/dL (0.3-1.0); Calcium 7.2 mg/dL (8.6-10.3); Globulin 3.1 g/dL (2.4-3.5); Potassium 5.5 mEq/L (3.5-5.1); Total Protein 5.6 g/dL (6.4-8.9)
[2022-07-04] MEDS: Dexmedetomidine HCl 400 MCG/100 ML MLS IVC SCH (05:01)
[2022-07-04] MEDS: Piperacillin/Tazobactam 3.375 GM in 0.9 % Sodium Chloride Mini Bag 100 ML IVPB SCH (05:01)
[2022-07-04] MEDS: Cisatracurium 200 MG in 0.9 % Sodium Chloride 80 ML IVC SCH ×2 (05:20→21:20)
[2022-07-04 05:59] LABS: Platelet Estimate Normal (Normal)
[2022-07-04] MEDS: Dexamethasone Sodium Phos/PF 10 MG/ML VIAL IVP SCH (07:42)
[2022-07-04] MEDS: amLODIPine 5 MG TABLET PO SCH (07:42)
[2022-07-04] MEDS: Pantoprazole 40 MG VIAL IVP SCH (07:42)
[2022-07-04] MEDS: Furosemide 20 MG/2 ML VIAL IVP SCH (07:42)
[2022-07-04] MEDS: Chlorhexidine Rinse 15 ML MOUTHWASH MM SCH ×2 (07:42→20:26)
[2022-07-04 08:58] LABS: ABG Base Excess -1 mEq/L (-2 to 3); ABG HCO3 32 mEq/L (21-27); ABG Oxygen Saturation 85 % (95-98); ABG PCO2 111 mmHg (35-45); ABG PH 7.07 pH Units (7.32-7.45); ABG PO2 73 mmHg (85-104); ABG TCO2 36 mEq/L (20-26); Blood Gas Modality AF; Blood Gas VT 400 cc
[2022-07-04] MEDS: Amiodarone Premix 360 MG/200 ML BAG IVC SCH ×2 (09:45→21:20)
[2022-07-04 11:57] LABS: ABG Base Excess 0 mEq/L (-2 to 3); ABG HCO3 32 mEq/L (21-27); ABG Oxygen Saturation 85 % (95-98); ABG PCO2 96 mmHg (35-45); ABG PH 7.13 pH Units (7.32-7.45); ABG PO2 68 mmHg (85-104); ABG TCO2 35 mEq/L (20-26); Blood Gas Modality AF; Blood Gas VT 400 cc
[2022-07-04 13:38] LABS: Calcium 7.2 mg/dL (8.6-10.3); Potassium 6.2 mEq/L (3.5-5.1)
[2022-07-04] MEDS ORDERED: Tigecycline 100 MG in 0.9 % Sodium Chloride 100 ML IVPB ONE (14:00)
[2022-07-04] MEDS ORDERED: SODIUM ZIRCONIUM CYCLOSILICATE 5 GM POWD.PACK PO SCH ×3 (14:15→21:00)
[2022-07-04] MEDS ORDERED: Insulin Human Regular 10 UNIT in 0.9 % Sodium Chloride 10 ML IV ONE (14:42)
[2022-07-04] MEDS ORDERED: *HR* Dextrose 50 % in Water (Syg) 50 ML SYRINGE IVP ONE (14:44)
[2022-07-04] MEDS: Calcium Gluconate 1gm/50mL 1 GM/50 ML BAG IVPB SCH ×2 (15:06→16:03)
[2022-07-04] MEDS: MetroNIDAZOLE 500 MG/100 ML 500 MG/100 ML BAG IVPB SCH ×2 (15:12→23:20)
[2022-07-04] MEDS: Albumin 25% 25gram/100mL 25 GM/100 ML IV.SOLN IVPB SCH ×2 (15:37→23:19)
[2022-07-04 16:10] LABS: ABG Base Excess 2 mEq/L (-2 to 3); ABG HCO3 31 mEq/L (21-27); ABG Oxygen Saturation 89 % (95-98); ABG PCO2 72 mmHg (35-45); ABG PH 7.25 pH Units (7.32-7.45); ABG PO2 68 mmHg (85-104); ABG TCO2 33 mEq/L (20-26); Blood Gas Modality AF; Blood Gas Pressure Support 12 cm H2O; Blood Gas VT 450 cc
[2022-07-04 16:47] LABS: Protein/Creatinine Ratio,Urine 1.18 mg/mg (0.00-0.20); Sodium, Urine 20.6 mEq/L
[2022-07-04] MEDS ORDERED: Clinimix 5%-20% SOLUTION 2,000 ML with MVI, adult with vitamin K 10 ML, Sodium Phosph... IVC SCH ×2 (17:00)
[2022-07-04] MEDS: SULFAMETHOXAZOLE IVPB SCH (17:53)
[2022-07-04] MEDS: TRIMETH IVPB SCH (17:53)
[2022-07-04] MEDS: WATER IVPB SCH (17:53)
[2022-07-04] MEDS: D5 IVPB SCH (17:53)
[2022-07-04 19:10] LABS: Calcium 7.6 mg/dL (8.6-10.3); Potassium 4.9 mEq/L (3.5-5.1)
[2022-07-04] MEDS: Norepinephrine 4 MG/254 ML IV.SOLN IVC SCH (23:20)
[2022-07-04 23:28] LABS: ABG Base Excess 3 mEq/L (-2 to 3); ABG HCO3 31 mEq/L (21-27); ABG Oxygen Saturation 86 % (95-98); ABG PCO2 62 mmHg (35-45); ABG PO2 59 mmHg (85-104); ABG TCO2 33 mEq/L (20-26); Blood Gas Modality ASSIST CONTROL; Blood Gas VT 450 cc
[2022-07-05 00:09] LABS: Calcium 7.2 mg/dL (8.6-10.3); Potassium 4.4 mEq/L (3.5-5.1)
[2022-07-05] MEDS: TRIMETH IVPB SCH ×3 (01:21→17:05)
[2022-07-05] MEDS: WATER IVPB SCH ×3 (01:21→17:05)
[2022-07-05] MEDS: D5 IVPB SCH ×3 (01:21→17:05)
[2022-07-05] MEDS: SULFAMETHOXAZOLE IVPB SCH ×3 (01:21→17:05)
[2022-07-05] MEDS: Tigecycline 50 MG in 0.9 % Sodium Chloride Mini Bag 100 ML IVPB SCH ×2 (01:26→12:54)
[2022-07-05] MEDS ORDERED: SODIUM ZIRCONIUM CYCLOSILICATE 5 GM POWD.PACK PO ONE (03:00)
[2022-07-05] MEDS: FentaNYL (PF) 1,000 MCG/100 ML IV.SOLN IVC SCH ×5 (03:23→23:44)
[2022-07-05] MEDS: Dexmedetomidine HCl 400 MCG/100 ML MLS IVC SCH (03:24)
[2022-07-05] MEDS: Heparin 25,000UNIT/250ML 1/2NS 25,000 UNIT/250 ML IV.SOLN IVC SCH (03:25)
[2022-07-05] MEDS: Artificial Tears SOLN 15 ML BOTTLE BOTH EYES SCH ×6 (03:25→23:44)
[2022-07-05] MEDS: Insulin LISPRO 300 UNITS/3 ML VIAL SUBQ SCH ×5 (03:26→19:29)
[2022-07-05 04:09] LABS: ABG Base Excess 3 mEq/L (-2 to 3); ABG HCO3 31 mEq/L (21-27); ABG Oxygen Saturation 90 % (95-98); ABG PCO2 62 mmHg (35-45); ABG PO2 65 mmHg (85-104); ABG TCO2 32 mEq/L (20-26); Blood Gas Modality ASSIST CONTROL; Blood Gas VT 450 cc
[2022-07-05 04:17] LABS: Basophils % 0.2 %; Hematocrit 31.8 % (37.5-50.1); Immature Granulocytes % 1.5 % (0-4); Lymphocytes # 0.6 K/mcL (0.6-4.6); Lymphocytes % 2.8 %; Mean Corpuscular HGB Conc 33.3 g/dL (31.6-35.5); Mean Corpuscular Hemoglobin 30.6 pg (28.0-33.3); Mean Corpuscular Volume 91.9 fL (83.0-100.0); Mean Platelet Volume 10.4 fL (9.4-12.4); Monocytes # 1.1 K/mcL (0.0-1.3); Monocytes % 5.7 %; Neutrophils # 17.9 K/mcL (1.6-8.9); Platelet Count 156 K/mcL (140-400); Red Blood Count 3.46 M/mcL (4.19-5.50); Red Cell Distribution Width 12.4 % (11.5-14.5); Segmented Neutrophils % 89.8 %; White Blood Count 19.9 K/mcL (4.3-11.1)
[2022-07-05 04:21] LABS: Hemoglobin 10.6 g/dL (12.9-16.9)
[2022-07-05 04:33] LABS: Albumin 3.1 g/dL (3.5-5.7); Albumin/Globulin Ratio 1.2 (1.1-2.2); Bilirubin,Direct 0.2 mg/dL (0.0-0.2); Bilirubin,Indirect 0.3 mg/dL (0.0-1.0); Bilirubin,Total 0.5 mg/dL (0.3-1.0); Calcium 7.3 mg/dL (8.6-10.3); Globulin 2.6 g/dL (2.4-3.5); Magnesium 2.9 mg/dL (1.6-2.6); Phosphorous 4.3 mg/dL (2.7-4.5); Potassium 4.6 mEq/L (3.5-5.1); Total Protein 5.7 g/dL (6.4-8.9)
[2022-07-05] MEDS: Pantoprazole 40 MG VIAL IVP SCH (07:43)
[2022-07-05] MEDS: MetroNIDAZOLE 500 MG/100 ML 500 MG/100 ML BAG IVPB SCH ×3 (07:44→23:44)
[2022-07-05] MEDS: Albumin 25% 25gram/100mL 25 GM/100 ML IV.SOLN IVPB SCH ×3 (07:44→23:50)
[2022-07-05] MEDS: Chlorhexidine Rinse 15 ML MOUTHWASH MM SCH ×2 (07:45→19:34)
[2022-07-05] MEDS: Dexamethasone Sodium Phos/PF 10 MG/ML VIAL IVP SCH (07:45)
[2022-07-05] MEDS: amLODIPine 5 MG TABLET PO SCH (07:45)
[2022-07-05] MEDS: Amiodarone Premix 360 MG/200 ML BAG IVC SCH ×2 (09:01→22:23)
[2022-07-05] MEDS ORDERED: 0.9 % Sodium Chloride 250 ML IVC PRN (10:04)
[2022-07-05] MEDS ORDERED: 0.9 % Sodium Chloride 2,000 ML PRIME SCH (10:15)
[2022-07-05] MEDS: Calcium Gluconate 1gm/50mL 1 GM/50 ML BAG IVPB SCH ×2 (11:14→11:40)
[2022-07-05] MEDS ORDERED: Heparin 1,000 UNITS/500 mL 500 ML ONE (13:40)
[2022-07-05] MEDS ORDERED: *HR* Heparin 5,000 UNIT/ML VIAL ONE (14:33)
[2022-07-05] MEDS: Cisatracurium 200 MG in 0.9 % Sodium Chloride 80 ML IVC SCH (15:40)
[2022-07-05] MEDS: Norepinephrine 4 MG/254 ML IV.SOLN IVC SCH (15:40)
[2022-07-05] MEDS ORDERED: *HR* Heparin 5,000 UNIT/ML VIAL IVP PRN (17:35)
[2022-07-05] MEDS ORDERED: 0.9 % Sodium Chloride 1,000 ML PRIME SCH (17:45)
[2022-07-05] MEDS ORDERED: 0.9 % Sodium Chloride 500 ML ONE (17:48)
[2022-07-05] MEDS: PrismaSATE BGK 4/2.5 5,000 ML CRRT SCH ×4 (17:51→23:53)
[2022-07-06] MEDS: Tigecycline 50 MG in 0.9 % Sodium Chloride Mini Bag 100 ML IVPB SCH ×2 (02:00→14:04)
[2022-07-06] MEDS: WATER IVPB SCH ×3 (02:00→17:23)
[2022-07-06] MEDS: TRIMETH IVPB SCH ×3 (02:00→17:23)
[2022-07-06] MEDS: SULFAMETHOXAZOLE IVPB SCH ×3 (02:00→17:23)
[2022-07-06] MEDS: D5 IVPB SCH ×3 (02:00→17:23)
[2022-07-06 03:29] LABS: VBG Ionized Calcium 0.94 mmol/L (1.15-1.35)
[2022-07-06 03:48] LABS: Basophils % 0.2 %; Hematocrit 28.3 % (37.5-50.1); Hemoglobin 9.5 g/dL (12.9-16.9); Lymphocytes # 0.6 K/mcL (0.6-4.6); Mean Corpuscular HGB Conc 33.6 g/dL (31.6-35.5); Mean Corpuscular Hemoglobin 30.7 pg (28.0-33.3); Mean Corpuscular Volume 91.6 fL (83.0-100.0); Mean Platelet Volume 10.8 fL (9.4-12.4); Monocytes # 0.9 K/mcL (0.0-1.3); Monocytes % 4.7 %; Neutrophils # 17.9 K/mcL (1.6-8.9); Platelet Count 138 K/mcL (140-400); Red Blood Count 3.09 M/mcL (4.19-5.50); Segmented Neutrophils % 90.1 %; White Blood Count 19.9 K/mcL (4.3-11.1)
[2022-07-06 03:50] LABS: INR 1.3
[2022-07-06 03:52] LABS: Activated Partial Thrombo Time 57.6 Seconds (26.0-36.0)
[2022-07-06 04:03] LABS: Albumin 3.1 g/dL (3.5-5.7); Albumin/Globulin Ratio 1.3 (1.1-2.2); Bilirubin,Direct 0.1 mg/dL (0.0-0.2); Bilirubin,Indirect 0.4 mg/dL (0.0-1.0); Bilirubin,Total 0.5 mg/dL (0.3-1.0); Calcium 6.8 mg/dL (8.6-10.3); Globulin 2.4 g/dL (2.4-3.5); Magnesium 2.7 mg/dL (1.6-2.6); Phosphorous 4.4 mg/dL (2.7-4.5); Potassium 5.1 mEq/L (3.5-5.1); Total Protein 5.5 g/dL (6.4-8.9)
[2022-07-06 04:46] LABS: ABG Base Excess -1 mEq/L (-2 to 3); ABG HCO3 26 mEq/L (21-27); ABG Oxygen Saturation 89 % (95-98); ABG PCO2 57 mmHg (35-45); ABG PH 7.27 pH Units (7.32-7.45); ABG PO2 65 mmHg (85-104); ABG TCO2 28 mEq/L (20-26); Blood Gas Modality AF; Blood Gas VT 450 cc
[2022-07-06] MEDS: Insulin LISPRO 300 UNITS/3 ML VIAL SUBQ SCH ×7 (05:26→23:03)
[2022-07-06] MEDS: Norepinephrine 4 MG/254 ML IV.SOLN IVC SCH ×2 (05:27→19:15)
[2022-07-06] MEDS: Artificial Tears SOLN 15 ML BOTTLE BOTH EYES SCH ×6 (05:27→23:03)
[2022-07-06] MEDS: Dexmedetomidine HCl 400 MCG/100 ML MLS IVC SCH (05:29)
[2022-07-06] MEDS: FentaNYL (PF) 1,000 MCG/100 ML IV.SOLN IVC SCH ×4 (05:30→23:07)
[2022-07-06] MEDS: PrismaSATE BGK 4/2.5 5,000 ML CRRT SCH ×10 (05:30→22:04)
[2022-07-06] MEDS: Calcium Gluconate 1gm/50mL 1 GM/50 ML BAG IVPB PRN ×3 (05:52→21:14)
[2022-07-06] MEDS: Pantoprazole 40 MG VIAL IVP SCH (07:40)
[2022-07-06] MEDS: Dexamethasone Sodium Phos/PF 10 MG/ML VIAL IVP SCH (07:40)
[2022-07-06] MEDS: MetroNIDAZOLE 500 MG/100 ML 500 MG/100 ML BAG IVPB SCH ×3 (07:40→23:02)
[2022-07-06] MEDS: Albumin 25% 25gram/100mL 25 GM/100 ML IV.SOLN IVPB SCH ×3 (07:45→23:02)
[2022-07-06] MEDS: Chlorhexidine Rinse 15 ML MOUTHWASH MM SCH ×2 (07:55→20:02)
[2022-07-06] MEDS: amLODIPine 5 MG TABLET PO SCH (07:57)
[2022-07-06] MEDS: *HR* Amiodarone 200 MG TABLET PO SCH ×2 (08:57→20:02)
[2022-07-06 14:10] LABS: VBG Ionized Calcium 0.98 mmol/L (1.15-1.35)
[2022-07-06] MEDS: Heparin 25,000UNIT/250ML 1/2NS 25,000 UNIT/250 ML IV.SOLN IVC SCH ×2 (14:21→19:16)
[2022-07-06] MEDS: Docusate Oral Soln 100 MG/10 ML UDC PO SCH (20:02)
[2022-07-06 20:53] LABS: VBG Ionized Calcium 0.98 mmol/L (1.15-1.35)
[2022-07-07] MEDS: TRIMETH IVPB SCH ×2 (01:04→10:29)
[2022-07-07] MEDS: D5 IVPB SCH ×2 (01:04→10:29)
[2022-07-07] MEDS: WATER IVPB SCH ×2 (01:04→10:29)
[2022-07-07] MEDS: SULFAMETHOXAZOLE IVPB SCH ×2 (01:04→10:29)
[2022-07-07] MEDS: Tigecycline 50 MG in 0.9 % Sodium Chloride Mini Bag 100 ML IVPB SCH (01:05)
[2022-07-07] MEDS: PrismaSATE BGK 4/2.5 5,000 ML CRRT SCH ×6 (02:05→10:42)
[2022-07-07] MEDS: Insulin LISPRO 300 UNITS/3 ML VIAL SUBQ SCH ×4 (03:09→12:12)
[2022-07-07] MEDS: Dexmedetomidine HCl 400 MCG/100 ML MLS IVC SCH (03:09)
[2022-07-07] MEDS: Artificial Tears SOLN 15 ML BOTTLE BOTH EYES SCH ×3 (03:09→12:12)
[2022-07-07 03:22] LABS: Basophils % 0.1 %; Hematocrit 27.6 % (37.5-50.1); Hemoglobin 9.3 g/dL (12.9-16.9); Immature Granulocytes % 1.7 % (0-4); Immature Platelets 10.4 % (1.1-6.1); Lymphocytes # 0.5 K/mcL (0.6-4.6); Lymphocytes % 3.1 %; Mean Corpuscular HGB Conc 33.7 g/dL (31.6-35.5); Mean Corpuscular Hemoglobin 30.8 pg (28.0-33.3); Mean Corpuscular Volume 91.4 fL (83.0-100.0); Neutrophils # 14.4 K/mcL (1.6-8.9); Red Blood Count 3.02 M/mcL (4.19-5.50); Red Cell Distribution Width 13.4 % (11.5-14.5); Segmented Neutrophils % 89.1 %; White Blood Count 16.2 K/mcL (4.3-11.1)
[2022-07-07 03:23] LABS: Platelet Count 93 K/mcL (140-400)
[2022-07-07 03:39] LABS: Albumin 3.7 g/dL (3.5-5.7); Albumin/Globulin Ratio 1.7 (1.1-2.2); Bilirubin,Direct 0.2 mg/dL (0.0-0.2); Bilirubin,Indirect 0.3 mg/dL (0.0-1.0); Bilirubin,Total 0.5 mg/dL (0.3-1.0); Calcium 7.1 mg/dL (8.6-10.3); Globulin 2.2 g/dL (2.4-3.5); Magnesium 2.6 mg/dL (1.6-2.6); Phosphorous 4.6 mg/dL (2.7-4.5); Potassium 5.3 mEq/L (3.5-5.1); Total Protein 5.9 g/dL (6.4-8.9)
[2022-07-07 03:53] LABS: ABG Base Excess -4 mEq/L (-2 to 3); ABG HCO3 25 mEq/L (21-27); ABG Oxygen Saturation 86 % (95-98); ABG PCO2 64 mmHg (35-45); ABG PO2 64 mmHg (85-104); ABG TCO2 27 mEq/L (20-26); Blood Gas VT 450 cc
[2022-07-07 04:06] LABS: VBG Ionized Calcium 0.99 mmol/L (1.15-1.35)
[2022-07-07] MEDS: Calcium Gluconate 1gm/50mL 1 GM/50 ML BAG IVPB PRN ×2 (04:21→09:29)
[2022-07-07] MEDS: FentaNYL (PF) 1,000 MCG/100 ML IV.SOLN IVC SCH ×2 (05:03→12:41)
[2022-07-07] MEDS: MetroNIDAZOLE 500 MG/100 ML 500 MG/100 ML BAG IVPB SCH (07:36)
[2022-07-07] MEDS: Albumin 25% 25gram/100mL 25 GM/100 ML IV.SOLN IVPB SCH (07:37)
[2022-07-07] MEDS: Pantoprazole 40 MG VIAL IVP SCH (07:38)
[2022-07-07] MEDS: Chlorhexidine Rinse 15 ML MOUTHWASH MM SCH (07:38)
[2022-07-07] MEDS: Norepinephrine 4 MG/254 ML IV.SOLN IVC SCH (07:56)
[2022-07-07] MEDS: *HR* Amiodarone 200 MG TABLET PO SCH (08:20)
[2022-07-07] MEDS: Docusate Oral Soln 100 MG/10 ML UDC PO SCH (08:20)
[2022-07-07] MEDS ORDERED: Multivitamin Liquid 15 ML UDC GTUBE SCH (09:00)
[2022-07-07] MEDS: amLODIPine 5 MG TABLET PO SCH (09:20)
[2022-07-07 09:25] LABS: VBG Ionized Calcium 1.02 mmol/L (1.15-1.35)
[2022-07-07 12:28] VITALS: PULSE 64; TEMP 96.6
[2022-07-07] MEDS ORDERED: *HR* LORazepam 2 MG/ML VIAL IVP PRN (12:30)
[2022-07-07] MEDS ORDERED: Glycopyrrolate 0.2 MG/ML VIAL IVP PRN ×2 (12:31→12:33)
[2022-07-07] MEDS ORDERED: Haloperidol Lactate 5 MG/ML VIAL IVP PRN (12:34)
[2022-07-07 13:38] VITALS: BP 92/53; O2SAT 82
== END 2022-07-07 15:25 | disposition expired | DRG 870 ==
LOC: EMEROOARM 11:30 → 2ANU 11:30 → 3NENU 11:30 → SUATTDRO 15:30 → 3NENU 17:33 → 2NNU 06-29 09:01 → ICNU 06-29 12:42
PROVIDERS: ADMIT Internal Medicine; ATTEND Internal Medicine